=== PATIENT | male | born 1985 | race Two or more races ===

== ENCOUNTER 2018-07-28 09:28 | Emergency (ER) | payer OTHER ==
[~2018-07-28] VITALS: Ht 170.2 cm; Wt 78.5 kg
[2018-07-28 09:36] VITALS: BP 148/93
== END 2018-07-28 12:50 | disposition home or self-care (01) ==
LOC: ED 09:28
DX: S62.601A Fracture of unspecified phalanx of left index finger, initial encounter for closed fracture (principal); S62.603A Fracture of unspecified phalanx of left middle finger, initial encounter for closed fracture; Z88.0 Allergy status to penicillin; W31.9XXA Contact with unspecified machinery, initial encounter; Y93.89 Activity, other specified; Y92.89 Other specified places as the place of occurrence of the external cause; Y99.8 Other external cause status
CPT/HCPCS: J1885